=== PATIENT | female | born 1935 | race Two or more races ===

== ENCOUNTER 2019-03-03 13:01 | Outpatient (CLI) | payer OTHER ==
[~2019-03-03 13:01] MED LIST: ATENOLOL50 MG; COZAAR50 MG
== END 2019-03-03 13:08 | disposition home or self-care (01) ==
LOC: MAMO-SONO 13:01
DX: Z12.31 Encounter for screening mammogram for malignant neoplasm of breast (principal); Z87.898 Personal history of other specified conditions; N60.11 Diffuse cystic mastopathy of right breast; N60.12 Diffuse cystic mastopathy of left breast

== ENCOUNTER → 2020-02-13 | Outpatient (CLI) | payer OTHER | END | disposition home or self-care (01) | LOC: NUCLEAR 10:13 | PROVIDERS: ATTEND Internal Medicine Cardiovascular Disease | DX: I73.9 Peripheral vascular disease, unspecified (principal) ==

== ENCOUNTER 2020-02-23 09:39 | Outpatient (CLI) | payer OTHER | END 2020-02-23 10:00 | disposition home or self-care (01) | LOC: NUCLEAR 09:39 | PROVIDERS: ATTEND Internal Medicine Cardiovascular Disease | DX: I65.23 Occlusion and stenosis of bilateral carotid arteries (principal) ==

== ENCOUNTER → 2020-12-08 09:38 | Outpatient (CLI) | payer OTHER | END | disposition home or self-care (01) | LOC: MAMO-SONO 09:38 | PROVIDERS: ATTEND Obstetrics & Gynecology | DX: N64.89 Other specified disorders of breast (principal); Z12.31 Encounter for screening mammogram for malignant neoplasm of breast ==

== ENCOUNTER 2021-02-25 16:27 | Emergency (ER) | payer OTHER ==
[~2021-02-25] VITALS: Ht 152.4 cm; Wt 54.4 kg
[2021-02-25] MEDS ORDERED: NORVASC2.5 M1 (16:51)
[2021-02-25] MEDS ORDERED: COREG CR20 MG (17:08)
== END 2021-02-25 19:51 | disposition home or self-care (01) ==
LOC: ER 16:27
DX: I16.0 Hypertensive urgency (principal); I10 Essential (primary) hypertension; N39.0 Urinary tract infection, site not specified

== ENCOUNTER 2022-02-15 11:14 | Outpatient (CLI) | payer OTHER ==
[~2022-02-15 11:14] MED LIST changes: +COREG CR20 MG; +NORVASC2.5 M1
== END 2022-02-15 12:37 | disposition home or self-care (01) ==
LOC: MAMO-SONO 11:14
PROVIDERS: ATTEND Anesthesiology
DX: N63.10 Unspecified lump in the right breast, unspecified quadrant (principal); N63.20 Unspecified lump in the left breast, unspecified quadrant

== ENCOUNTER 2023-03-07 12:32 | Outpatient (CLI) | payer OTHER | END 2023-03-07 12:42 | disposition home or self-care (01) | LOC: MAMO-SONO 12:32 | PROVIDERS: ATTEND Obstetrics & Gynecology | DX: N63.10 Unspecified lump in the right breast, unspecified quadrant (principal); N63.20 Unspecified lump in the left breast, unspecified quadrant; Z12.31 Encounter for screening mammogram for malignant neoplasm of breast ==

== ENCOUNTER 2024-03-25 09:14 | Outpatient (CLI) | payer OTHER | END 2024-03-25 09:22 | disposition home or self-care (01) | LOC: MAMO-SONO 09:14 | PROVIDERS: ATTEND Obstetrics & Gynecology | DX: N60.11 Diffuse cystic mastopathy of right breast (principal); N60.12 Diffuse cystic mastopathy of left breast; Z12.31 Encounter for screening mammogram for malignant neoplasm of breast ==

== ENCOUNTER 2024-11-03 09:14 | Outpatient (CLI) | payer OTHER | END 2024-11-03 09:20 | disposition home or self-care (01) | LOC: SONOGRAMA 09:14 | PROVIDERS: ATTEND Internal Medicine Cardiovascular Disease | DX: R10.9 Unspecified abdominal pain (principal) ==

== ENCOUNTER 2025-04-21 08:14 | Outpatient (CLI) | payer OTHER | END 2025-04-21 08:15 | disposition home or self-care (01) | LOC: SONOGRAMA 08:14 | PROVIDERS: ATTEND Internal Medicine Gastroenterology | DX: K63.5 Polyp of colon (principal); K59.01 Slow transit constipation; K55.20 Angiodysplasia of colon without hemorrhage; Z86.0100 Personal history of colon polyps, unspecified; K80.20 Calculus of gallbladder without cholecystitis without obstruction ==